=== PATIENT | female | born 1960 | race Caucasian/White ===

== ENCOUNTER 2016-12-01 13:46 | Outpatient (CLI) | payer BC | END 2016-12-01 20:27 | disposition home or self-care (01) | LOC: SMA 13:46 | PROVIDERS: ATTEND Internal Medicine | DX: R92.8 Other abnormal and inconclusive findings on diagnostic imaging of breast (principal); M85.80 Other specified disorders of bone density and structure, unspecified site; Z85.3 Personal history of malignant neoplasm of breast | CPT/HCPCS: G0206 ==

== ENCOUNTER 2017-12-02 14:02 | Outpatient (CLI) | payer BC | END 2017-12-02 20:14 | disposition home or self-care (01) | LOC: SMA 14:02 | PROVIDERS: ATTEND Internal Medicine | DX: R92.8 Other abnormal and inconclusive findings on diagnostic imaging of breast (principal) | CPT/HCPCS: 77065 ==

== ENCOUNTER 2018-12-08 13:30 | Outpatient (CLI) | payer BC | END 2018-12-08 20:56 | disposition home or self-care (01) | LOC: SMA 13:30 | PROVIDERS: ATTEND Internal Medicine | DX: R92.1 Mammographic calcification found on diagnostic imaging of breast (principal); Z85.3 Personal history of malignant neoplasm of breast; Z90.12 Acquired absence of left breast and nipple | CPT/HCPCS: 76642; 77066 ==

== ENCOUNTER 2020-07-22 12:47 | Outpatient (CLI) | payer BC | END 2020-07-22 20:39 | disposition home or self-care (01) | LOC: SMA 12:47 | DX: R92.2 Inconclusive mammogram (principal); Z85.3 Personal history of malignant neoplasm of breast | CPT/HCPCS: 77065; 77066 ==

== ENCOUNTER 2021-11-10 11:32 | Outpatient (CLI) | payer OTHER | END 2021-11-10 19:28 | disposition home or self-care (01) | LOC: SMA 11:32 | PROVIDERS: ATTEND Internal Medicine | DX: R92.1 Mammographic calcification found on diagnostic imaging of breast (principal); Z85.3 Personal history of malignant neoplasm of breast | CPT/HCPCS: 77066 ==